=== PATIENT | male | born 1980 | race Caucasian/White ===

== ENCOUNTER 2023-10-22 10:23 | Inpatient (IN) | payer OTHER ==
[2023-10-22 11:11] VITALS: BMI 24.2
[2023-10-22] MEDS ORDERED: guaiFENesin 600 MG TABLET.ER (FP) PO PRN (11:38)
[2023-10-22] MEDS ORDERED: MAGNESIUM HYDROX 2400MG/30ML ORAL SUSPENSION 30 ML CUP PO PRN (11:38)
[2023-10-22] MEDS ORDERED: ONDANSETRON *ODT* 4 MG TABLET SL PRN (11:38)
[2023-10-22] MEDS ORDERED: POLYETHYLENE GLYCOL (HEALTHYLAX) 3350 17 GM PACKET PO PRN (11:38)
[2023-10-22] MEDS ORDERED: IBUPROFEN 400 MG TABLET (FP) PO PRN (11:38)
[2023-10-22] MEDS ORDERED: BENZOCAINE/MENTHOL (CHLORASEPTIC ) LOZENGE MM PRN (11:38)
[2023-10-22] MEDS ORDERED: NALOXONE HCL 0.4 MG/ML VIAL IM PRN (11:38)
[2023-10-22] MEDS ORDERED: MAG HYDROX/AL HYDROX/SIMETH 30 ML UNIT-DOSE CUP PO PRN (11:38)
[2023-10-22] MEDS ORDERED: LOPERAMIDE HCL 2 MG CAPSULE PO PRN (11:38)
[2023-10-22] MEDS ORDERED: BENZONATATE 200 MG CAPSULE PO PRN (11:38)
[2023-10-22] MEDS ORDERED: NALOXONE HCL (KLOXXADO) 8 MG SPRAY NS PRN (11:38)
[2023-10-22] MEDS ORDERED: DICYCLOMINE HCL 10 MG CAPSULE PO PRN (11:38)
[2023-10-22] MEDS ORDERED: ACETAMINOPHEN 325 MG TABLET (FP) PO PRN (11:38)
[2023-10-22] MEDS ORDERED: IBUPROFEN 600 MG TABLET (FP) PO PRN (11:38)
[2023-10-22] MEDS ORDERED: BISMUTH SUBSALICYLATE 262 MG/15 ML BTL PO PRN (11:38)
[2023-10-22] MEDS ORDERED: NICOTINE POLACRILEX 2 MG GUM BUC PRN (11:41)
[2023-10-22] MEDS: hydrOXYzine PAMOATE 25 MG CAPSULE (FP) PO PRN ×2 (14:18→22:29)
[2023-10-22] MEDS ORDERED: ALBUTEROL SO4 HFA INHALER IH PRN (15:18)
[2023-10-22] MEDS: chlordiazePOXIDE HCL 25 MG CAPSULE PO SCH ×3 (17:57→22:27)
[2023-10-22] MEDS ORDERED: MELATONIN 5 MG TABLETS PO SCH (22:00)
[2023-10-22] MEDS: THIAMINE HCL 100 MG TABLET (FP) PO SCH (22:27)
[2023-10-22] MEDS: METHOCARBAMOL 500 MG TABLET PO PRN (22:29)
[2023-10-23] MEDS: chlordiazePOXIDE HCL 25 MG CAPSULE PO SCH ×4 (05:30→22:21)
[2023-10-23] MEDS: METHOCARBAMOL 500 MG TABLET PO PRN (10:19)
[2023-10-23] MEDS: amLODIPine BESYLATE 10 MG TABLET (FP) PO SCH (10:20)
[2023-10-23] MEDS: hydrOXYzine PAMOATE 25 MG CAPSULE (FP) PO PRN (10:20)
[2023-10-23] MEDS: PRENATAL VITAMINS W/ FOLIC ACID TABLET (FP) PO SCH (10:20)
[2023-10-23] MEDS ORDERED: risperiDONE 1 MG TABLET PO SCH (11:30)
[2023-10-23] MEDS: risperiDONE 1 MG TABLET PO SCH ×2 (11:51→22:14)
[2023-10-23] MEDS: DIVALPROEX SODIUM 500 MG TABLET E.C. PO SCH ×2 (11:52→22:14)
[2023-10-23] MEDS ORDERED: PARoxetine HCL 20 MG TABLET PO SCH (12:30)
[2023-10-23] MEDS: THIAMINE HCL 100 MG TABLET (FP) PO SCH (22:12)
[2023-10-23] MEDS: chlordiazePOXIDE HCL 25 MG CAPSULE PO PRN (22:14)
[2023-10-23] MEDS: traZODone HCL 100 MG TABLET (FP) PO SCH (22:14)
[2023-10-24] MEDS: chlordiazePOXIDE HCL 25 MG CAPSULE PO SCH ×4 (05:34→23:34)
[2023-10-24] MEDS: DIVALPROEX SODIUM 500 MG TABLET E.C. PO SCH ×2 (10:14→23:34)
[2023-10-24] MEDS: hydrOXYzine PAMOATE 25 MG CAPSULE (FP) PO PRN (10:14)
[2023-10-24] MEDS: amLODIPine BESYLATE 10 MG TABLET (FP) PO SCH (10:14)
[2023-10-24] MEDS: PRENATAL VITAMINS W/ FOLIC ACID TABLET (FP) PO SCH (10:14)
[2023-10-24] MEDS: risperiDONE 1 MG TABLET PO SCH ×2 (10:14→23:34)
[2023-10-24] MEDS: METHOCARBAMOL 500 MG TABLET PO PRN ×2 (10:14→17:11)
[2023-10-24] MEDS: PARoxetine HCL 10 MG TABLET PO SCH (10:15)
[2023-10-24] MEDS: chlordiazePOXIDE HCL 25 MG CAPSULE PO PRN (14:05)
[2023-10-24 15:18] LABS: BASO % 1.1 % (0-2.0); EOS % 0.6 % (0-4.5); HEMATOCRIT 40.8 % (35.4-49); HEMOGLOBIN 13.7 GM/dL (11.7-16.9); LYMPH % 24.3 % (8-40); MCH 35.3 pg (25.7-33.7); MCHC 33.7 g/dl (32.0-35.9); MEAN CELL VOLUME 104.5 fl (80-96); MEAN PLT VOLUME 9.2 fl (7.5-11.1); MONO % 8.2 % (3.8-10.2); NEUT % 65.8 % (42.8-82.8); PLATELET COUNT 151 10^3/uL (134-434); RDW 12.6 % (11.9-15.9); WHITE BLOOD COUNT 4.7 K/mm3 (4.0-10.0)
[2023-10-24 15:43] LABS: POTASSIUM 4.1 mmol/L (3.5-5.1)
[2023-10-24 15:47] LABS: ALBUMIN 3.4 g/dl (3.4-5.0); CALCIUM 8.8 mg/dL (8.5-10.1)
[2023-10-24 15:51] LABS: CREATININE 0.9 mg/dL (0.55-1.3)
[2023-10-24 15:52] LABS: BILIRUBIN,TOTAL 1.1 mg/dL (0.2-1); TOT PROT 6.5 g/dl (6.4-8.2)
[2023-10-24] MEDS: THIAMINE HCL 100 MG TABLET (FP) PO SCH (23:34)
[2023-10-24] MEDS: traZODone HCL 100 MG TABLET (FP) PO SCH (23:34)
[2023-10-25] MEDS ORDERED: chlordiazePOXIDE HCL 10 MG CAPSULE PO PRN
[2023-10-25] MEDS: chlordiazePOXIDE HCL 10 MG CAPSULE PO SCH ×2 (05:55→10:09)
[2023-10-25 06:30] VITALS: RESP 18
[2023-10-25 09:21] VITALS: BP 114/79; PULSE 85; TEMP 97.8
[2023-10-25] MEDS: risperiDONE 1 MG TABLET PO SCH (10:07)
[2023-10-25] MEDS: DIVALPROEX SODIUM 500 MG TABLET E.C. PO SCH (10:07)
[2023-10-25] MEDS: PRENATAL VITAMINS W/ FOLIC ACID TABLET (FP) PO SCH (10:07)
[2023-10-25] MEDS: PARoxetine HCL 10 MG TABLET PO SCH (10:07)
[2023-10-25] MEDS: amLODIPine BESYLATE 10 MG TABLET (FP) PO SCH (10:07)
[2023-10-26] MEDS ORDERED: chlordiazePOXIDE HCL 10 MG CAPSULE PO SCH (05:00)
[2023-10-27] MEDS ORDERED: chlordiazePOXIDE HCL 10 MG CAPSULE PO ONE (05:00)
== END 2023-10-25 11:17 | disposition home or self-care (01) | DRG 775 ==
LOC: YASAS 10:23 → Y6N 12:27
PROVIDERS: ADMIT Allergy & Immunology; ATTEND Surgery
PROC: HZ2ZZZZ Detoxification Services for Substance Abuse Treatment (ICD-10-PCS; principal; 2023-10-22)
DX: F10.230 Alcohol dependence with withdrawal, uncomplicated (principal); F13.20 Sedative, hypnotic or anxiolytic dependence, uncomplicated; F17.210 Nicotine dependence, cigarettes, uncomplicated; F25.0 Schizoaffective disorder, bipolar type; F19.280 Other psychoactive substance dependence with psychoactive substance-induced anxiety disorder; F19.282 Other psychoactive substance dependence with psychoactive substance-induced sleep disorder; F41.9 Anxiety disorder, unspecified; F43.10 Post-traumatic stress disorder, unspecified; I10 Essential (primary) hypertension; J45.909 Unspecified asthma, uncomplicated; R73.03 Prediabetes
CPT/HCPCS: 36415; 80053; 85025; 86780; 87635; 87811; 93005; 93010; Q0162